=== PATIENT | female | born 2005 | race Caucasian/White ===

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

== ENCOUNTER 2025-04-18 09:23 | Outpatient (CLI) | payer OTHER, SELFPAY ==
--- OUTSIDE RECORDS SUMMARY | 2025-04-18 09:42 | XMS_ITS | Clinical Summary ---
Author Organization [facility] Address [address] [place] [address] Care Team Providers Care Waterproofer Helper Name Role Phone Tank Bryant MD Primary Care Provider [phone] Source Comments [facility],non-owned Affiliates and Associated Physician Practices is amultiple site organization consisting of ambulatory clinics and hospital sitesin [place], [place], [place] and [place]. This disclosure is being madepursuant to the Care Everywhere program and may not contain all information available regarding this patient. Last updated 18.[facility] Allergies Active Allergy Reactions Criticality Noted Date Comments Sulfa Drugs 09/11/2013 Medications * Be aware that medications may not be up to date on this document. Alwaysverify current medications with the patient. diphenhydrAMINE (BENADRYL) 12.5 MG/5ML solution Take by mouth every 6 hours as needed. Active cefdinir (Omnicef) 300 MG capsule Take 1 (one) capsule by mouth Active Resolved Problems Problem Noted Date Diagnosed Date Resolved Date Rash 09/11/2013 09/06/2014 Assessment & Plan (09/12/2013 1:37 PM CDT): Assessment: Juliana is an 7 yo previously healthy female who presents with an erythematous maculopapular pruritic rash. Differential includes rash reaction to sulfa drugs vs DRESS, Lilly Faizan syndrome, Viral Exanthem, vs other. SJS vs TENS possible although rash covers > 10% of the body, no bullae apparent and patient appears otherwise healthy which makes these less likely. Given symptoms and now improvement off TMP/SMX, this is likely a sulfa reaction. Would avoid sulfa drugs. Plan: -Benadryl, Atarax PRN pruritis -General diet -may d/c PIV - okay to d/c home with PCP follow-up - avoid sulfa drugs Immunizations Immunization Administration Dates Next Due DTAP/IPV 12/30/2008 DTaP VACCINE IM (6wk-6yrs) 03/24/2006,,05/19/2005,03/24 HEP B VACCINE, PED/ADOL 08/18/2005,2004 HIB VACCINE 11/19/2005,05/19/2005,03/24/2005 INFLUENZA VACCINE 01/31/2009,03/24/2006 INFLUENZA VACCINE, CELL CULT URE, QUADR. (FLUCELVAX QUADRIVALENT; 6MO+) (CCIIV4) 03/18/2022,02/02/2019 INFLUENZA VACCINE, QUADR. (F LUZONE; FLULAVAL; FLUARIX; AFLURIA QUADRIVALENT; 6MO+), 0.5 ML (IIV4) 03/26/2021,01/20/2020,02/09/2018 INFLUENZA VACCINE, TRIV. (FL UZONE; FLULAVAL; FLUARIX; AFLURIA TRIVALENT; 6MO+), 0.5 ML (IIV3) 02/09/2017 MMR VACCINE 12/30/2008,11/19/2005 Meningococcal ACWY (Menquadfi) Vac IM 11/30/2021 PNEUMOCOCCAL PCV7 CONJ, PEDS 11/19/2005,05/19/19 06,03/24/2005 POLIO IPV 03/24/2006,03/24/2005 VARICELLA 03/24/2006,03/16/2006 Social History Tobacco Use Types Packs/Day Years Used Date Smoking Tobacco: Never Smokeless Tobacco: Never Tobacco Cessation:Counseling Given: Not Answered Alcohol Use Standard Drinks/Week Comments No 0 (1 standard drink = 0.6 oz pur e alcohol) Comments No Sex and Gender Information Value Date Recorded Sex Assigned at Not on file Legal Sex Female 6:34 AM [employer] Gender Identity Not on file Sexual Orientation Not on file Last Filed Vital Signs Vital Sign Reading Time Taken Comments Blood Pressure 116/70 04/29/2022 4:50 PM [employer] Pulse 94 04/29/2022 4:50 PM [employer] Temperature 37 C (98.6 F) 04/29/2022 4:50 PM [employer] Respiratory Rate 20 04/29/2022 4:50 PM [employer] Oxygen Saturation 100% 04/29/2022 4:50 PM [employer] Inhaled Oxygen Concentration - - Weight 101.3 kg (223 lb 5.2 oz) 05/22/2022 2:08 PM [employer] Height 166 cm (5' 5.35) 05/22/2022 2:08 PM [employer] Body Mass Index 36.76 05/22/2022 2:08 PM [employer] Plan of Treatment Health Maintenance Due Date Last Done Comments HEPATITIS B VACCINE (3 of 3 - 3-dose series) 10/13/2005 08/18/2005, 2004 DTAP/TDAP/TD VACCINES (5 - Tdap) 11/15/2015 12/30/2008, 03/24/2006, 03/16/2006, Additional history exists HIV SCREENING 11/15/2019 HPV VACCINE (1 - 3-dose series) 11/15/2019 CHLAMYDIA/GONORRHEA SCREENING 2020 MENINGOCOCCAL (Group B) VACC INE SHARED DECISION-MAKING (1 of 2 - Standard) 2020 HEPATITIS C SCREENING 11/10/2022 DEPRESSION SCREENING 04/27/2024 COVID-19 VACCINE (4 2024-2 6 season) 2024 05/14/2021, 09/30/2020, 09/09/2020 INFLUENZA VACCINE (#1) 2024 , 03/26/2021, 01/20/2020, Additional history exists ZOSTER VACCINE (1 of 2) 2054 HIB VACCINE Completed 11/19/2005, 04/28, 03/24/2005 PNEUMOCOCCAL VACCINE Completed 11/19/2005, 05/19/2005, 03/24/2005 MENINGOCOCCAL GROUPS A/C/Y/W VACCINE Completed 11/30/[address] [facility] Care Teams Waterproofer Helper Relationship Specialty Start Date End Date Tank Bryant MD [address] [place] [id number] PCP - General 04/22/11
--- OUTSIDE RECORDS SUMMARY | 2025-04-18 09:42 | XMS_ITS | Clinical Summary ---
Author Organization [facility] Address [address] [place] [id number] Care Team Providers Care Analysis Mgr Name Role Phone Tank Bryant MD Primary Care Provider [phone] Allergies Active Allergy Reactions Criticality Noted Date Comments Sulfa Antibiotics Lilly Faizan Syndrome 08/25 Medications methylPREDNISol one, ISABEL, (MEDROL DOSEPAK) 4 MG tablet 6 TABLETS ON DAY ONE, 5 TABLETS DAY TWO, 4 TABLETS DAY THREE, 3 TABLETS DAY FOUR, 2 TABLETS DAY FIVE, AND 1 TABLET DAY SIX 1 each 03/23/2022 Active Social History Tobacco Use Types Packs/Day Years Used Date Smoking Tobacco: Never Smokeless Tobacco: Never Tobacco Cessation:Counseling Given: Not Answered Comments Unknown Sex and Gender Information Value Date Recorded Sex Assigned at Not on file Legal Sex Female 8:09 PM CDT Gender Identity Not on file Sexual Orientation Not on file Last Filed Vital Signs Vital Sign Reading Time Taken Comments Blood Pressure 126/66 03/23/2022 1:38 PM [employer]IOR [employer] Pulse 89 03/23/2022 1:38 PM [employer] Temperature 36.7 C (98 F) 03/23/2022 1:38 PM [employer] Respiratory Rate 20 03/23/2022 1:38 PM [employer]IOR [employer] Oxygen Saturation 100% 03/23/2022 1:38 PM [employer] Inhaled Oxygen Concentration - - Weight 74.8 kg (165 lb) 03/23/2022 11:02 AM [employer]IOR [employer] Height 162.6 cm (5' 4) 03/23/2022 11:02 AM [employer]IOR [employer] Body Mass Index 28.32 03/23/2022 11:02 AM S[employer]IOR [employer] Plan of Treatment Health Maintenance Due Date Last Done Comments Hepatitis B Vaccines (3 of 3 - 3-dose series) 10/13/2005 08/18/2005, 2004 Annual Physical 11/15/2007 DTaP, Tdap and Td Vaccines (5 - Tdap) 11/15/2015 12/30/2008, 03/24/2006, 03/16/2006, Additional history exists HPV Vaccines (1 - 3-dose series) 11/15/2019 Meningococcal B Vaccine (1 of 2 - Standard) 2020 Hepatitis C 2022 COVID-19 Vaccine (4 - season) 2024 05/14/2021, 09/30/2020, 09/09/2020 Influenza Adult (#1) 2025 03/18/2022, 03/26/2021, 01/20/2020, Additional history exists Pneumococcal Vaccine: Pediatrics (0 to 5 Years) and At-Risk Patients (6 to 49 Years) Aged Out 11/19/2005, 05/19/2005, 03/24/2005 No longer eligible based on patient's age to complete this topic Meningococcal Vaccine Completed 11/30/2021 Hepatitis A Vaccines Aged Out No long er eligible based on patient's age to complete this topic RSV Immunizations Under 20 Months Aged Out No longer eligible based on patient's age to complete this topic Insurance [facility] Care Teams Analysis Mgr Relationship Specialty Start Date End Date Tank Bryant MD [phone] [address] PCP - General FAMILY PRACTICE 03/23/22
[2025-04-18 10:12] LABS: Hematocrit 41.4 % (37.0-47.0); Hemoglobin 13.6 g/dL (12.0-15.0); Immature Granulocyte Percent A 0.6 % (0-0.5); Lymphocytes Absolute Auto 3.91 K/mm3 (0.9-3.2); Mean Corpuscular HGB Conc 32.9 g/dl (32-36); Mean Corpuscular Hemoglobin 26.3 pg (26-34); Mean Corpuscular Volume 80.1 fl (80-100); Nucleated Red Blood Cells Absolute Auto 0.000 K/mm3 (0.0-0.012); Nucleated Red Blood Cells Perc 0.0 % (0.0-0.2); Platelet Count Result 454 k/mm3 (150-375); Red Blood Count 5.17 M/mm3 (4.2-5.4); White Blood Count 12.6 K/mm3 (4.5-10.0)
[2025-04-18 10:32] LABS: Add Urine Microscopic? NO; Appearance Urine Clear (Clear); Glucose Urine UA Negative (Negative); Leukocyte Esterase Ur Negative LEU/UL (Negative); Nitrate Urine Negative (Negative); Specific Grav Ur 1.031 (1.001-1.035)
[2025-04-18 10:33] LABS: Hemoglobin A1C 5.2 % (<5.7)
[2025-04-18 10:34] LABS: Alanine Aminotransferase 14 U/L (6-35); Albumin Level 4.4 g/dL (3.5-5.1); Alkaline Phosphatase 60 U/L (38-126); Anion Gap 9 mmol/L (4-12); Aspartate Amino Transferase 25 U/L (14-36); Bilirubin,Total 0.4 mg/dL (0.2-1.3); Blood Urea Nitrogen 14 mg/dL (7-17); Calcium 9.5 mg/dL (8.4-10.2); Carbon Dioxide 25 mmol/L (22-30); Chloride 102 mmol/L (98-107); Cholesterol 222 mg/dL (0-200); Estimated Glomerular Filt Rate > 60; Glucose 79 mg/dL (65-110); HDL Direct 50 mg/dL; Potassium 3.8 mmol/L (3.4-5.0); Sodium 136 mmol/L (137-145); Total Protein 8.0 g/dL (6.3-8.2); Triglycerides 192 mg/dL (<150)
[2025-04-18 11:05] LABS: Thyroid Stimulating Hormone Reflex 1.900 uIU/mL (0.465-4.68)
== END 2025-04-18 09:24 | disposition home or self-care (01) ==
PROVIDERS: PCP Nurse Practitioner Family; Visit Provider Nurse Practitioner Family
DX: Z13.29 Encounter for screening for other suspected endocrine disorder (principal); Z13.0 Encounter for screening for diseases of the blood and blood-forming organs and certain disorders involving the immune mechanism; Z00.00 Encounter for general adult medical examination without abnormal findings; Z13.6 Encounter for screening for cardiovascular disorders; Z13.1 Encounter for screening for diabetes mellitus
CPT/HCPCS: 36415; 80053; 80061; 81003; 83036; 84443; 85025